=== PATIENT | male | born 1965 | race Caucasian/White ===

== ENCOUNTER 2025-01-09 00:21 | Emergency (ER) | payer OTHER, SELFPAY ==
--- OUTSIDE RECORDS SUMMARY | 2022-08-10 03:00 | XMS_ITS | Continuity of Care Document ---
Author Organization [facility] Address [address] [place] [id number] Phone Care Team Providers Care Sales Marketing Manager Name Role Phone Mary Doe Unavailable Unavailable Allergies, Adverse Reactions, Alerts Substance Reaction Status Criticality No Known Allergies Active No Inform ation Medications Medication Instructions Dosage Effective Dates (start - stop) Status Comments tramadol 50 mg tablet - Acti ve cyclobenzaprine 10 mg tablet - Active eszopiclone 3 mg tablet - Ac tive valsartan 160 mg-hydrochlorothiazide 25 mg tablet TAKE 1 TABLET BY MOUTH DAILY - Active Procedures Procedure Date WA OFFICE/OUTPATIENT ESTABLISHED MOD MDM 30-39 MIN TTE W/DOPPLER COMPLETE CHG MYOCRD IMG PET PRFUJ MULTIPLE STUDY REST&STRESS WA CV STRS TST XERS&/OR RX CONT ECG W/SI &R WA RB82 RUBIDIUM WA REGADENOSON INJECTION 0.1 MG 023 WA OFFICE/OUTPATIENT NEW MODERATE MDM 45 -59 MINUTES ELECTROCARDIOGRAM COMPLETE Advance Directives Directive Yes / No Effective Date File Name No Information Encounters Encounter Description Practice Location Reason(s) For Visit Diagnoses Date Provider Providers Copied on Encounter [place] OFFICE/OUTPA TIENT ESTABLISHED MOD MDM 30-39 MIN [facility], [address], [id number], [place] tel:[phone] Jhoan F/u to testing (chief complaint) Precordial painShortness of breathHypertensi onEncounter for screening for cardiovascular disordersBody mass index [BMI] 34.0-34.9, adult Apr- 3 Sagar Hernandez. [address] [facility], [address], [place], [place], [id number] , [place]. tel:[phone] Referring Provider: Karina Mcgrath, [address], [place], [place], . tel:[phone] [facility], [address] [facility] [address], [place], [id number], tel:[phone] Jhoan 3 Raina Valdovinos. [address] [place] [address] [address], [place], [place], [id number] , [place]. tel:[phone] Referring Provider: Karina Mcgrath, [address], [place], [place], . tel:[phone] [facility], [address] [facility] [address], [place], [place], [id number], [place] tel:[phone] Boyd Precordial pain 3 Raina Valdovinos. [address] [place] [address], [place], [place], [id number] , [place]. tel:[phone] Referring Provider: Karina Mcgrath, [address], [place], [place], . tel:[phone] [place] OFFICE/OUTPA TIENT NEW MODERATE MDM 45-59 MINUTES [facility], [address] [place] [address] [address], [place], [place], [id number], [place] tel:[phone] Jhoan STORES CLERK, SOB, SOB (chief complaint) Shortness of breathBody mass index [BMI] 34.0-34.9, adultPrecordial painEncounter for screening for cardiovascular disordersHydonnell nsion 3 Raina Valdovinos. [address] [facility] [address], [place], [place], [id number] , [place]. tel:[phone] Referring Provider: Karina Mcgrath, [address] [facility], [place], [address]. tel:[phone] Family History Family Member Type Diagnosis Age At Onset Father Problem Coronary artery disease Payers Payer name Insurance type Covered libertarian ID Mary dominique(sAwa Garcia [id number] Social History Type Description Quantity Date Captured Comments Alcohol Use Details Unknown Caffeine Use Details Unknown Tobacco Use Status No Information Smoking Status No Information Sex Male Vital Signs Date / Time: Height Weight BMI Pulse Rate Blood Pressure Temperature Respiratory Rate Body Surface Area Head Circumference Head Circ. Percentile Wt./Pino. Percentile BMI percentile Pulse Ox Inhaled Ox 8:00 AM 70.00 in 107.955 kg (238.00 lbs) 34.1 5 kg/m eter (2) 81 /min 103/71 mm[Hg] Chief Complaint And Reason For Visit From encounter dated '08/10/2022 08:00'. F/u to testing (chief complaint). Description: Mr. Ruiz is pleasant, , grown kids, 1 grandkid. 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 No ongoing ethanol use.Drinks 2-3 diet cokes daily.Does not do formal exercise, has chronic severe back pain and hip pain/arthritis.He presents today for follow up to review cardiac testing as he has been experiencing intermittent chest discomfort while resting and some exertional dyspnea. He notes occasional heart flutterings" that occur with no other associated symptoms. He denies any issues/burden with these palpitations. He has a myriad of orthopaedic issues, which limit his ambulation. He states he plans to use his swimming pool over the summer which will help him increase his physical activity. Currently deniesany chest pain, dyspnea or palpitations. ?General:?Denies fevers, chills, or sweats. Denies fatigue, weight gain, weight loss.Head: Denies headaches, vision loss, eye pain.ENT: Denies nasal congestion, sinus pain, sore throat, oral bleedingRespiratory:? Denies cough, wheezing, sputum production. Cardiovascular:? See HPI. Gastrointestinal:? Denies abdominal pain, nausea, vomiting, diarrhea, constipation. Neurological:? Denies lightheadedness,syncope, focal weakness. Musculoskeletal: Denies arthritis, myalgias. Genitourinary: Denies dysuria. bladder problems.Skin: Denies rash, itching, new lesions. Hematologic: Denies easy bruising, bleeding. Endocrine: Denies heat/cold intolerance, increased thirst.Psychiatric: Denies depression, anxiety. Reason For Referral Reason For Referral No Information Plan Of Treatment Date Type Action Status Goal Lifestyle education regardin g diet completed Future Order: Radiology Order Po sitron Emission Tomography/Computed Tomography/Lexiscan protocol (63015), Ordered on: Ordered Future Order: Radiology Order 2- D Echocardiogram ([id number]), Scheduled for: Ordered History Of Present Illness Encounter Date Complaint History Of Prese nt Illness F/u to testing Mr. Ruiz is pleasant, , grown kids, 1 grandkid. 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 No ongoing ethanol use.Drinks 2-3 diet cokes daily.Does not do formal exercise, has chronic severe back pain and hip pain/arthritis.He presents today for follow up to review cardiac testing as he has been experiencing intermittent chest discomfort while resting and some exertional dyspnea. He notes occasional heart flutterings that occur with no other associated symptoms. He denies any issues/burden with these palpitations. He has a myriad of orthopaedic issues, which limit his ambulation. He states he plans to use his swimming pool over the summer which will help him increase his physical activity. Currently denies any chest pain, dyspnea or palpitations. General: D enies fevers, chills, or sweats. Denies fatigue, weight gain, weight loss.Head: Denies headaches, vision loss, eye pain.ENT: Denies nasal congestion, sinus pain, sore throat, oral bleedingRespiratory: Denies cough, wheezing, sputum production. Cardiovascular:? See HPI. Gastrointestinal: Denies abdominal pain, nausea, vomiting, diarrhea, constipation. Neurological: Denies lightheadedness, syncope, focal weakness. Musculoskeletal: Denies arthritis, myalgias. Genitourinary: Denies dysuria. bladder problems.Skin: Denies rash, itching, new lesions. Hematologic: Denies easy bruising, bleeding. Endocrine: Denies heat/cold intolerance, increased thirst.Psychiatric: Denies depression, anxiety. STORES CLERK, SOB, SOB New patient here to establish care.He is pleasant, , grown kids, 1 grandkid. 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 No ongoing ethanol use.Drinks 2-3 diet cokes daily.Does not do formal exercise, has chronic severe back pain and hip pain/arthritis.-Over past several months has had intermittent chest discomfort substernal radiating to left arm without clear trigger, no clear exertional chest discomfort. Sometimes has noticed exertional dyspnea with greater than moderate activity Functional Status Date Functional Assessmen t No Information Instructions Date Instruction Additional Hermelindor mahi Lifestyle education regarding di et Related to Body mass index [BMI] 34.0-34.9, adult Assessments Type Assessment Date No Information Patient Care Teams Name Effective Dates (start - stop) Status Members No Information
[2025-01-09] VITALS (8 sets, daily range): BP systolic 122–200; BP diastolic 67–109; PULSE 59–77; RESP 12–22; TEMP 36.6; O2SAT 95–100
--- NOTE | 2025-01-09 00:29 | XRR_ITS ---
PROCEDURE INFORMATION: Exam: XR Right Hip Exam date and time: 01/09/2025 12:36 AM Age: 59 years old Clinical indication: Injury or trauma; Fall; Blunt trauma (contusions or hematomas); Right; Prior surgery; Surgery date: 6+ months; Surgery type: Total hip; Additional info: Pain, please include pelvis TECHNIQUE: Imaging protocol: Radiologic exam of the right hip. Views: 1 view hip with pelvis when performed. COMPARISON: No relevant prior studies available. 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 No evidence of acute periprosthetic fracture within the limitations of this examination. Soft tissues: Unremarkable. 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 No acute periprosthetic fracture. Recommend repeat imaging status post reduction.
[2025-01-09] MEDS: ondansetron 2 mg/ML SDV 2 mL 4 MG IVP (00:58)
[2025-01-09] MEDS: morphine 4 mg/mL SDV 1 mL IVP (00:58)
--- NOTE | 2025-01-09 01:40 | ED_ITS ---
Documented by User: ZEUS Forbes 01/09/25 02:01 HPI - Fall 2 General: Chief Complaint: Fall Stated Complaint: FALL Time Seen by Provider: 01/09/25 00:29 History of Present Illness: Selected Entries 01/09/25 00:22 ED Triage Comment Pt. brought in by saige larkin with complaint of left hip pain after fal ling out of chair. Pt. has etoh on b oard. Patient stated he slipped off of a chair directly on his right hip. He cannot move his hip without pain. He has a previous prosthesis to his right hip. This occurred prior to arrival. He came in by EMS. He is unable to ambulate or bear weight. Associated symptoms-after fall: Denies abdominal pain, chest pain, headache(s) or neck pain Review of Systems 2 General: Reports: 10 or more systems reviewed and unremarkable except in HPI and below Const: Denies: fever(s) or chills Eyes: Denies: change in vision or blurry vision ENMT: Denies: throat pain Card: Denies: chest pain or palpitations Resp: Denies: dyspnea or non-productive cough GI: Denies: abdominal pain, nausea or vomiting : Denies: flank pain or difficulty urinating Musc: Reports: extremity pain and joint pain; Denies: neck pain, back pain, extremity swelling, joint swelling, joint redness, joint warmth or joint stiffness Skin/Breast: Denies: rash or pruritus Neuro: Denies: headache(s) or numbness in extremities Physical Exam 2 Const: COMMON NORMALS: no acute distress, average body habitus, patient oriented x3, no limitations, healthy appearing, alert and well nourished HENMT: COMMON NORMALS: normocephalic and atraumatic HEAD & SCALP: n ormocephalic and atraumatic Neck/C-Spine: COMMON NORMALS: full ROM and no lymphadenopathy Lymph: LYMPHATIC: no lymphadenopathy noted Chest: COMMONS NORMALS: normal inspection of the chest and normal palpation of entire chest wall Resp: COMMON NORMALS: normal respiratory effort, No retractions and clear to auscultation bilaterally AUSCULTATION: clear to auscultation bilaterally Cardio: COMMON NORMALS: regular rate and regular rhythm RATE: regular rate RHYTHM: regular rhythm GI: COMMON NORMALS: Normal to inspection, nondistended, normoactive bowel sounds present, Soft to palpation, non-tender and No hepatosplenomegaly present PALPATION: Yes Soft to palpation and Yes No hepatosplenomegaly present : COMMON NORMALS: Yes no CVA tenderness BLADDER/KIDNEY EXAM: Yes no CVA tenderness Back/Pelvis: COMMON NORMALS: no CVA tenderness Extremity: COMMON NORMALS: capillary refill normal GENERAL: Yes normal exam except as noted RIGHT LOWER EXTREMITY: Yes hip joint Right hip: Yes inspection (edema right lateral hip), Yes palpation (pain on greater trochanter) and Yes ROM (cannot ROM due to pain) Neuro: COMMON NORMALS: patient oriented x3 SENSORIUM/ORIENTATION: Yes alert Psych: COMMON NORMALS: mental status grossly normal, Normal thought process present and cooperative THOUGHT PROCESS: Normal thought process present Course 2 Vital Signs: Vital signs: Vital Signs Temperature 97.9 F 01/09/25 00:31 Pulse Rate 67 01/09/25 03:03 Respiratory Rate 18 01/09/25 03:03 Blood Pressure 158/74 01/09/25 03:03 Pulse Oximetry 100 01/09/25 03:03 Oxygen Delivery Me thod Room Air 01/09/25 03:03 Oxygen Flow Rate 2 01/09/25 02:50 MDM - Fall Medical Decision Making Patient is 59-year-old gentleman, drinking alcohol night, fell out of his chair, directly on his right hip, and has displacement of his right hip prosthesis. Dr. Rodriguez will take the patient and reduce this prosthesis. Medical Records Patient clearly has separation of his right hip prosthesis. Lab Data 01/09/25 00:28 01/09/25 00:28 Laboratory Results WBC 7.78 10^3/uL (3.29-11.43) 01/09/25 00: RBC 4.83 10^6/uL (3.85-5.65) 01/09/25 00:28 Hgb 13.90 g/dL (11.27-16.99) 01/09/25 00: Hct 42.2 % (37-53) 01/09/25 00: MCV 87.4 fl (82-101) 01/09/25 00: MCH 28.8 pg (27-33) 01/09/25 00: MCHC 32.9 g/dL (30-55) 01/09/25 00: RDW 14.4 % (12.1-15.1) 01/09/25 00: Plt Count 274 10^3/cmm (157-399) 01/09/25: MPV 9.5 fL (7.4-10.4) 01/09/25: Neut % (Auto) 50.2 % 01/09/25: Lymph % (Auto) 36.4 % 01/09/25: [place] % (Auto) 7.7 % 01/09/25: Eos % (Auto) 4.5 % 01/09/25: Baso % (Auto) 0.8 % 01/09/25: Neut # (Auto) 3.91 10^3/uL (1.8-7.7) 01/09/25 Lymph # (Auto) 2.8 10^3/uL (0.8-4.8) 01/09/25: [place] # (Auto) 0.6 10^3/uL (0.2-0.9) 01/09/25: Eos # (Auto) 0.4 10^3/uL (0.0-0.8) 01/09/25: Baso # (Auto) 0.1 10^3/uL (0.0-0.1) 01/09/25: Nucleated RBC % (auto) 0 % 01/09/25 Nucleated RBCs # 0.0 /100WBC 01/09/25: Sodium 140 mmol/L (136-145) 01/09/25: Potassium 4.4 mmol/L (3.5-5.1) 01/09/25: Chloride 102 mmol/L (98-107) 01/09/25: Carbon Dioxide 18 mmol/L (22-29) L 01/09/25: Anion Gap 24.4 (5-19) H 01/09/25: BUN 10 mg/dL (8-23) 01/09/25: Creatinine 0.9 mg/dL (0.7-1.2) 01/09/25: GFR Calculation 85.8 mL/min (90-130) L 01/09/25: Glucose 90 mg/dL (65-115) 01/09/25 00:28 Calculated Osmolality 289 mOsm/kg (285-295) 01/09/25 00:28 Calcium 9.2 mg/dL (8.5-10.5) 01/09/25 00:28 Total Bilirubin 0.2 mg/dL (0.15-1.2) 01/09/25 00:28 AST 26 U/L (0-40) 01/09/25 00:28 ALT 31 U/L (0-41) 01/09/25 00:28 Alkaline Phosphatase 71 U/L (40-130) 01/09/25 00:28 Total Protein 7.2 g/dL (6.6-8.7) 01/09/25 00:28 Albumin 4.6 g/dL (3.5-5.2) 01/09/25 00:28 Globulin 2.6 g/dL (1.3-4.6) 01/09/25 00:28 Urine Color Yellow (Yellow) 01/09/25 01:17 Urine Appearance Clear (CLEAR) 01/09/25 01:17 Urine pH 6.5 (5-7) 01/09/25 01:17 Ur Specific [place] 1.004 (1.005-1.030) L 01/09/25 01:17 Urine Protein Negative (Negative) 01/09/25 01:17 Urine Glucose (UA) Negative (Normal) 01/09/25 01:17 Urine Ketones Negative (Negative) 01/09/25 01:17 Urine Blood Negative (Negative) 01/09/25 01:17 Urine Nitrate Negative (Negative) 01/09/25 01:17 Urine Bilirubin Negative (Negative) 01/09/25 01:17 Urine Urobilinogen 0.2 mg/dL (Negative) 01/09/25 01:17 Ur Leukocyte Esterase Negative (Negative) 01/09/25 01:17 Urine RBC 0-2 /hpf (0-2) 01/09/25 01:17 Urine WBC 0-5 /hpf (0-5) 01/09/25 01:17 Ur Squamous Epith Cells 0-5 /hpf (0-5) 01/09/25 01:17 Amorphous Sediment Not Reportable 01/09/25 01:17 Urine Bacteria None seen /hpf (NONE) 01/09/25 01:17 Hyaline Casts 0-4 /lpf H 01/09/25 01:17 Ethyl Alcohol 156 mg/dL (0-10) H 01/09/25 00:28 Discharge Plan Discharge Patient Disposition: Home Clinical Impression: Dislocation of hip, right, closed Condition: Stable Discharge Orders: Discharge ED (Routine); Ordered 01/09/25 Ordered By: Barber Rodriguez Discharge Diet: Usual diet Discharge Activity: Limit activity as instructed Patient Instructions: Hip Dislocation (ED), Patient Portal & Jesus Instructions Activity Restrictions/Additional Instructions: Avoid jujitsu and doing the splits for least a few days to keep your hip from dislocating again. Godspeed and good luck with your hip revision surgery. Print Language: Lithuanian Coding Level of Care Code ED [employer] Web Developer for Chg Fwd Documented by User: Barber Rodriguez MD 01/09/25 03:47 HPI - Fall 2 General: Chief Complaint: Fall Stated Complaint: FALL Time Seen by Provider: 01/09/25 00:29 Procedures Orthopedic Joint Reduction Joint #1: Time Out Performed: Yes Side: right Joint Reduction Location: hip Analgesia: procedural sedation Technique used: direct manipulation Post-reduction neuro exam: intact Post-reduction vascular: intact Post Reduction X-Ray Obtained: Yes Post Reduction X-Ray Results: reduced Splint Applied: Yes Patient Tolerated Procedure: well and no complications Procedural Sedation Indication: fracture/dislocation reduction ASA Class: II Preparation: cardiac cath lab radiology technologist applied, pulse oximeter, supplemental O2 applied, suction/airway equipment at bedside and IV secured IV Propofol dose (mg): 260 Patient Tolerated Procedure: well Complications: Respiratory Depression-Repositioning Required Interventions: oxygen applied and assist by BVM Course 2 Vital Signs: Vital signs: Vital Signs Temperature 97.9 F 01/09/25 00:31 Pulse Rate 67 01/09/25 03:03 Respiratory Rate 18 01/09/25 03:03 Blood Pressure 158/74 01/09/25 03:03 Pulse Oximetry 100 01/09/25 03:03 Oxygen Delivery Me thod Room Air 01/09/25 03:03 Oxygen Flow Rate 2 01/09/25 02:50 MDM - Fall Medical Decision Making Patient is 59-year-old gentleman, drinking alcohol night, fell out of his chair, directly on his right hip, and has displacement of his right hip prosthesis. Dr. Rodriguez will take the patient and reduce this prosthesis. Dr. Rodriguez: Patient remained hemodynamically stable throughout ED course. He was given propofol to ease muscular tension and hip was able to be reduced without difficulty. Postreduction films confirm proper placement. To keep him from dislocating again, he will be placed in a knee immobilizer on the affected leg with hopes that this will keep him from flexing the hip sufficiently to allow it to dislocate again. He shows good understanding and agrees to the plan and will be discharged with plans to follow-up with his orthopedic surgeon in 9 days for revision surgery Lab Data 01/09/25 00:28 01/09/25: Laboratory Results WBC 7.78 10^3/uL (3.29-11.43) 01/09/25: RBC 4.83 10^6/uL (3.85-5.65) 01/09/25: Hgb 13.90 g/dL (11.27-16.99) 01/09/25: Hct 42.2 % (37-53) 01/09/25: MCV 87.4 fl (82-101) 01/09/25: MCH 28.8 pg (27-33) 01/09/25: MCHC 32.9 g/dL (30-55) 01/09/25 RDW 14.4 % (12.1-15.1) 01/09/25: Plt Count 274 10^3/cmm (157-399) 01/09/25: MPV 9.5 fL (7.4-10.4) 01/09/25: Neut % (Auto) 50.2 % 01/09/25: Lymph % (Auto) 36.4 % 01/09/25: [place] % (Auto) 7.7 % 01/09/25: Eos % (Auto) 4.5 % 01/09/25: Baso % (Auto) 0.8 % 01/09/25: Neut # (Auto) 3.91 10^3/uL (1.8-7.7) 01/09/25: Lymph # (Auto) 2.8 10^3/uL (0.8-4.8) 01/09/25: [place] # (Auto) 0.6 10^3/uL (0.2-0.9) 01/09/25: Eos # (Auto) 0.4 10^3/uL (0.0-0.8) 01/09/25: Baso # (Auto) 0.1 10^3/uL (0.0-0.1) 01/09/25: Nucleated RBC % (auto) 0 % 01/09/25 Nucleated RBCs # 0.0 /100WBC 01/09/25: Sodium 140 mmol/L (136-145) 01/09/25: Potassium 4.4 mmol/L (3.5-5.1) 01/09/25 Chloride 102 mmol/L (98-107) 01/09/25 Carbon Dioxide 18 mmol/L (22-29) L 01/09/25: Anion Gap 24.4 (5-19) H 01/09/25 BUN 10 mg/dL (8-23) 01/09/25: Creatinine 0.9 mg/dL (0.7-1.2) 01/09/25 GFR Calculation 85.8 mL/min (90-130) L 01/09/25 Glucose 90 mg/dL (65-115) 01/09/25: Calculated Osmolality 289 mOsm/kg (285-295) 01/09/25 Calcium 9.2 mg/dL (8.5-10.5) 01/09/25 Total Bilirubin 0.2 mg/dL (0.15-1.2) 01/09/25: AST 26 U/L (0-40) 01/09/25 ALT 31 U/L (0-41) 01/09/25 Alkaline Phosphatase 71 U/L (40-130) 01/09/25: Total Protein 7.2 g/dL (6.6-8.7) 01/09/25 00:28 Albumin 4.6 g/dL (3.5-5.2) 01/09/25 00:28 Globulin 2.6 g/dL (1.3-4.6) 01/09/25 00:28 Urine Color Yellow (Yellow) 01/09/25 01:17 Urine Appearance Clear (CLEAR) 01/09/25 01:17 Urine pH 6.5 (5-7) 01/09/25 01:17 Ur Specific [place] 1.004 (1.005-1.030) L 01/09/25 01:17 Urine Protein Negative (Negative) 01/09/25 01:17 Urine Glucose (UA) Negative (Normal) 01/09/25 01:17 Urine Ketones Negative (Negative) 01/09/25 01:17 Urine Blood Negative (Negative) 01/09/25 01:17 Urine Nitrate Negative (Negative) 01/09/25 01:17 Urine Bilirubin Negative (Negative) 01/09/25 01:17 Urine Urobilinogen 0.2 mg/dL (Negative) 01/09/25 01:17 Ur Leukocyte Esterase Negative (Negative) 01/09/25 01:17 Urine RBC 0-2 /hpf (0-2) 01/09/25 01:17 Urine WBC 0-5 /hpf (0-5) 01/09/25 01:17 Ur Squamous Epith Cells 0-5 /hpf (0-5) 01/09/25 01:17 Amorphous Sediment Not Reportable 01/09/25 01:17 Urine Bacteria None seen /hpf (NONE) 01/09/25 01:17 Hyaline Casts 0-4 /lpf H 01/09/25 01:17 Ethyl Alcohol 156 mg/dL (0-10) H 01/09/25 00:28 All radiology interpretation(s) finalized by discharge Discharge Plan Discharge Patient Disposition: Home Clinical Impression: Dislocation of hip, right, closed Condition: Stable Discharge Orders: Discharge ED (Routine); Ordered 01/09/25 Ordered By: Barber Rodriguez Discharge Diet: Usual diet Discharge Activity: Limit activity as instructed Patient Instructions: Hip Dislocation (ED), Patient Portal & Jesus Instructions Activity Restrictions/Additional Instructions: Avoid jujitsu and doing the splits for least a few days to keep your hip from dislocating again. Godspeed and good luck with your hip revision surgery. Print Language: Lithuanian Coding Level of Care Code ED [employer] Web Developer for Katy Farooq
[2025-01-09 01:44] LABS: Hematocrit 42.2 % (37-53); Hemoglobin 13.90 g/dL (11.27-16.99); Mean Corpuscular HGB Conc 32.9 g/dL (30-55); Mean Corpuscular Hemoglobin 28.8 pg (27-33); Mean Corpuscular Volume 87.4 fl (82-101); Nucleated Red Blood Cells % 0 %; Platelet Count 274 10^3/cmm (157-399); Red Blood Count 4.83 10^6/uL (3.85-5.65); White Blood Count 7.78 10^3/uL (3.29-11.43)
[2025-01-09] MEDS: thiamine 100 mg/mL 2mL SDV IVP (01:56)
--- NOTE | 2025-01-09 02:03 | XRR_ITS ---
PROCEDURE INFORMATION: Exam: XR Right Hip Exam date and time: 01/09/2025 2:33 AM Age: 59 years old Clinical indication: Injury or trauma; Other: Dislocation; Right; Prior surgery; Surgery date: 6+ months; Surgery type: Lumbar fusion. RT minoo; Check S/P RT hip reduction; Additional info: Post reduction TECHNIQUE: Imaging protocol: Radiologic exam of the right hip. Views: 1 view hip with pelvis when performed. COMPARISON: CR (PELVIS, ) 01/09/2025 12:36 AM FINDINGS: Bones/joints: The right hip dislocation has been reduced. There is now normal anatomic alignment of the right prosthesis. No fracture identified. Previous surgical fusion at L5-S1. Soft tissues: Unremarkable. XR/XR hip RT 2-3V wo/w pel* [id number] IMPRESSION: The right hip prosthesis is now normally aligned status post reduction.
[2025-01-09 02:21] LABS: Alanine Aminotransferase 31 U/L (0-41); Albumin Level 4.6 g/dL (3.5-5.2); Alcohol Level 156 mg/dL (0-10); Alkaline Phosphatase 71 U/L (40-130); Blood Urea Nitrogen 10 mg/dL (8-23); Calcium 9.2 mg/dL (8.5-10.5); Carbon Dioxide 18 mmol/L (22-29); Chloride 102 mmol/L (98-107); Creatinine Clr Calc Pharmacy 102.0612; Globulin 2.6 g/dL (1.3-4.6); Glucose 90 mg/dL (65-115); Osmolality Calculated 289 mOsm/kg (285-295); Sodium 140 mmol/L (136-145); Total Protein 7.2 g/dL (6.6-8.7)
[2025-01-09 02:33] LABS: Anion Gap 24.4 (5-19); Potassium 4.4 mmol/L (3.5-5.1)
[2025-01-09] MEDS: propofol 10 mg/mL SDV 20 mL 150 MG IVP (02:33)
[2025-01-09 02:34] LABS: Aspartate Amino Transferase 26 U/L (0-40)
[2025-01-09] MEDS: propofol 10 mg/mL SDV 20 mL 200 MG IVP (02:48)
[2025-01-09 03:04] LABS: Glucose Urine UA Negative (Normal); Nitrate Urine Negative (Negative); Specific Gravity, Urine 1.004 (1.005-1.030)
[2025-01-09 03:09] LABS: Add Urine Microscopic? YES
== END 2025-01-09 04:06 | disposition home or self-care (01) ==
PROVIDERS: Physician Assistant; Emergency Provider Student in an Organized Health Care Education/Training Program
DX: T84.020A Dislocation of internal right hip prosthesis, initial encounter (principal); Z96.641 Presence of right artificial hip joint; W07.XXXA Fall from chair, initial encounter
CPT/HCPCS: 27265; 73502; 80053; 80307; 81001; 85025; 96361; 96374; 96375; 99152; 99285; J2270; J2405; J2704; J3411; J7030